=== PATIENT | female | born 1995 | race Caucasian/White ===

== ENCOUNTER 2018-03-04 14:19 | Emergency (ER) | payer OTHER ==
[2018-03-04 14:42] VITALS: BP 123/78; PULSE 80; TEMP 98.5; BMI 26.9
--- NOTE | 2018-03-04 14:42 | PDOC ---
Rapid Medical Evaluation Time Seen by Provider: 03/04/18 14:30 Medical Evaluation: Allergies Allergy/AdvReac Type Severity Reaction Status Date / Time No Known Allergies Allergy Verified 03/04/18 14:36 03/04/18 14:37 I have performed a brief in-person evaluation of this patient. The patient presents with a chief complaint of: neck pain x 6 weeks denies sore throat or pain swallowing. Seen at "clinic" today and referred to hospital for xray. Pertinent physical exam findings: NAD even and unlabored breathing no rash noted on skin neck with no swelling I have ordered the following: none The patient will proceed to the ED for further evaluation.
[2018-03-04] MEDS ORDERED: IBUPROFEN 600 MG TABLET (FP) PO ONE ×2 (15:36→15:38)
--- NOTE | 2018-03-04 15:37 | PDOC ---
History of Present Illness - General Chief Complaint: Head/Neck problem Stated Complaint: NECK PAIN Time Seen by Provider: 03/04/18 14:30 History Source: Patient Exam Limitations: No Limitations - History of Present Illness Initial Comments: 03/04/18 16:38 Patient is a 23-year-old female past medical history of kidney stones, who presents emergency department today complaining of right-sided neck pain. Patient states that she feels like it's been swollen. Denies fevers, chills, night sweats, lethargy, nausea vomiting diarrhea, sore throat. Past History - Travel Traveled outside of the country in the last 30 days: No Close contact w/someone who was outside of country & ill: No - Past Medical History Allergies/Adverse Reactions: Allergies Allergy/AdvReac Type Severity Reaction Status Date / Time No Known Allergies Allergy Verified 03/04/18 14:36 Home Medications: Ambulatory Orders Ibuprofen 600 mg PO TID #21 tablet 03/04/18 COPD: No Kidney Stones: Yes - Suicide/Smoking/Psychosocial Hx Smoking History: Current every day smoker Have you smoked in the past 12 months: Yes Number of Cigarettes Smoked Daily: 10 Information on smoking cessation initiated: No Review of Systems - Review of Systems Able to Perform ROS?: Yes Comments:: 03/04/18 16:19 CONSTITUTIONAL: Absent: fever, chills, diaphoresis, generalized weakness, malaise, loss of appetite HEENT: Present: R neck swelling Absent: rhinorrhea, nasal congestion, throat pain, throat swelling, difficulty swallowing, mouth swelling, ear pain, eye pain, visual Changes CARDIOVASCULAR: Absent: chest pain, loss of consciousness, palpitations, irregular heart rate, peripheral edema RESPIRATORY: Absent: cough, shortness of breath, dyspnea with exertion, orthopnea, wheezing, stridor, hemoptysis MUSCULOSKELETAL: Absent: myalgia, arthralgia, joint swelling SKIN: Absent: rash, itching, pallor NEUROLOGIC: Absent: headache, focal weakness or paresthesias, dizziness, unsteady gait, seizure, mental status changes, bladder or bowel incontinence Is the patient limited Serbian proficient: No *Physical Exam - Vital Signs Last Vital Signs Temp Pulse Resp BP Pulse Ox 98.5 F 80 19 123/78 100 03/04/18 14:36 03/04/18 14:36 03/04/18 14:36 03/04/18 14:36 03/04/18 14:36 - Physical Exam Comments: 03/04/18 16:19 GENERAL: Well developed, well nourished. Awake and alert. No acute distress. HEENT: Normocephalic, atraumatic. PERRLA, EOMI. No conjunctival pallor. Sclera are non- icteric. Moist mucous membranes. Oropharynx is clear. NECK: Supple. Full ROM. No JVD. Carotid pulses 2+ and symmetric, without bruits. No thyromegaly. (+) R sided LAD CARDIOVASCULAR: Regular rate and rhythm. No murmurs, rubs, or gallops. Distal pulses are 2+ and symmetric. PULMONARY: No evidence of respiratory distress. Lungs clear to auscultation bilaterally. No wheezing, rales or rhonchi. ABDOMINAL: Soft. Non-tender. Non-distended. No rebound or guarding. No organomegaly. Normoactive bowel sounds. MUSCULOSKELETAL Normal range of motion at all joints. No bony deformities or tenderness. No CVA tenderness. EXTREMITIES: No cyanosis. No clubbing. No edema. No calf tenderness. SKIN: Warm and dry. Normal capillary refill. No rashes. No jaundice. NEUROLOGICAL: Alert, awake, appropriate. Cranial nerves 2-12 intact. No deficits to light touch and temperature in face, upper extremities and lower extremities. No motor deficits in the in face, upper extremities and lower extremities. Normoreflexic in the upper and lower extremities. Normal speech. Toes are down- going bilaterally. Gait is normal without ataxia. PSYCHIATRIC: Cooperative. Good eye contact. Appropriate mood and affect. ED Treatment Course - LABORATORY CBC & Chemistry Diagram: 03/04/18 15:30 Medical Decision Making - Medical Decision Making 03/04/18 16:41 Patient is a 23-year-old female who is emergency department today with right neck swelling. On exam patient with LAD. No other exam findings. CBC is within normal limits at this time. Most likely LAD either from a viral illness or smoking. Instructed patient to follow up with primary care. Referral provided. Patient receives all discharge instructions and all questions were answered. *DC/Admit/Observation/Transfer Diagnosis at time of Disposition: LAD (lymphadenopathy) - Discharge Dispostion Disposition: HOME Condition at time of disposition: Stable Decision to Admit order: No - Prescriptions Prescriptions: Ibuprofen 600 mg PO TID #21 tablet - Referrals Referrals: ON STAFF,NOT [Primary Care Provider] - - Patient Instructions Printed Discharge Instructions: DI for Lymphadenopathy Additional Instructions: Your blood work is normal today. You have a swollen glands. Please take Motrin 600 mg every 8 hours for one week to help with the swelling. He may also use warm compresses to help with the swelling. Please try and quit smoking. Follow-up with the internal medicine doctor provided for you. Return to the emergency department if you have difficulty breathing, shortness of breath fevers, chills, or if you have any changes in your symptoms. [facility] Address: [address] [place] [address] - Post Discharge Activity
[2018-03-04 16:02] LABS: BASO % 0.8 % (0-2.0); EOS % 3.3 % (0-4.5); HEMATOCRIT 40.8 % (32.4-45.2); HEMOGLOBIN 13.8 GM/dL (10.7-15.3); LYMPH % 27.9 % (8-40); MCH 30.6 pg (25.7-33.7); MCHC 33.8 g/dl (32.0-36.0); MEAN CELL VOLUME 90.6 fl (80-96); MEAN PLT VOLUME 9.6 fl (7.5-11.1); MONO % 9.2 % (3.8-10.2); NEUT % 58.8 % (42.8-82.8); PLATELET COUNT 266 K/MM3 (134-434); RBC 4.51 M/mm3 (3.60-5.2); RDW 13.1 % (11.6-15.6); WHITE BLOOD COUNT 9.1 K/mm3 (4.0-10.0)
== END 2018-03-04 16:27 | disposition home or self-care (01) ==
LOC: JERFT 14:19
DX: R59.0 Localized enlarged lymph nodes (principal); F17.210 Nicotine dependence, cigarettes, uncomplicated; Z87.442 Personal history of urinary calculi
CPT/HCPCS: 36415; 85025; 99281-25

== ENCOUNTER 2019-09-02 18:32 | Emergency (ER) | payer OTHER ==
[2019-09-02 18:40] VITALS: BP 131/65; PULSE 78; TEMP 98
--- NOTE | 2019-09-02 19:10 | PDOC ---
History of Present Illness <Elisa Combs - Last Filed: 09/02/19 21:01> - History of Present Illness Initial Comments: 09/02/19 20:03 24 y/o F 10wks no significant medical hx presenting to the ED with 1 day of vaginal bleeding s/p sexual intercourse. She noticed bleeding while using the bathroom. Has had a about a couple of teaspoons worth of bleeding since then. Did not need to use a pad. Bleeding has reduced to mild pinking spotting on underwear. She endorses intermittent lower abdominal cramping pain and one episode of non-bloody emesis since yesterday. She denies fevers, chills, purulent vaginal discharge,bloody stools. Last OB visit was this earlier this week. reports was non-eventful. <Belle Palencia - Last Filed: 09/02/19 21:05> - General Chief Complaint: Vaginal Bleeding Stated Complaint: 10 WKS /BLEEDING Time Seen by Provider: 09/02/19 19:09 Past History <Elisa Combs - Last Filed: 09/02/19 21:01> - Past Medical History COPD: No Kidney Stones: Yes - Psycho Social/Smoking Cessation Hx Smoking History: Never smoked Have you smoked in the past 12 months: Yes Number of Cigarettes Smoked Daily: 10 <Belle Palencia - Last Filed: 09/02/19 21:05> - Past Medical History Allergies/Adverse Reactions: Allergies Allergy/AdvReac Type Severity Reaction Status Date / Time No Known Allergies Allergy Verified 09/02/19 18:37 Home Medications: Ambulatory Orders NK [No Known Home Medication] 09/02/19 *Physical Exam - Vital Signs Last Vital Signs Temp Pulse Resp BP Pulse Ox 98 F 78 18 131/65 99 09/02/19 18:34 09/02/19 18:34 09/02/19 18:34 09/02/19 18:34 09/02/19 18:34 <Elisa Combs - Last Filed: 09/02/19 21:01> - Vital Signs Last Vital Signs Temp Pulse Resp BP Pulse Ox 98 F 78 18 131/65 99 09/02/19 18:34 09/02/19 18:34 09/02/19 18:34 09/02/19 18:34 09/02/19 18:34 - Physical Exam Comments: 09/02/19 20:09 PE: GENERAL: Awake, alert, and fully oriented, in no acute distress HEAD: No signs of trauma, normocephalic, atraumatic EYES: EOMI, sclera anicteric, conjunctiva clear ENT: Auricles normal inspection, hearing grossly normal, nares patent, oropharynx clear without exudates. Moist mucosa NECK: Normal ROM, supple, or masses LUNGS: No distress, speaks full sentences, clear to auscultation bilaterally HEART: Regular rate and rhythm, normal S1 and S2, no murmurs, rubs or gallops, peripheral pulses normal and equal bilaterally. ABDOMEN: Soft, nontender, normoactive bowel sounds. No guarding, no rebound. No masses PELVIC: no cervical motion tenderness, no adnexal tenderness, trace blood in vaginal vault. cervical os closed clear discharge from os. EXTREMITIES : Normal inspection, Normal range of motion, no edema. No clubbing or cyanosis NEUROLOGICAL: Cranial nerves II through XII grossly intact. Normal speech, normal gait, no focal sensorimotor deficits SKIN: Warm, Dry, normal turgor, no rashes or lesions noted <Belle Palencia - Last Filed: 09/02/19 21:05> Procedures - Bedside Ultrasound Bedside Ultrasound: guest service representative Remarks: 09/02/19 21:01 Bedside pelvic US performed for female with VB and /or abdominal pain. views obtained: transverse and sagittal views of suprapubic region, findings include live IUP visualized dated at, FHR 168-170 bpm. no pelvic FF. Impression : live IUP. <Elisa Combs - Last Filed: 09/02/19 21:01> ED Treatment Course - LABORATORY CBC & Chemistry Diagram: 09/02/19 19:44 09/02/19 19:44 - ADDITIONAL ORDERS Additional order review: Laboratory Results 09/02/19 09/02/19 09/02/19 20:00 19:44 19:44 Sodium 134 L Potassium 4.1 Chloride 103 Carbon Dioxide 27 Anion Gap 5 L BUN 11.5 Creatinine 0.5 L Est GFR (CKD-EPI)AfAm 157.00 Est GFR (CKD-EPI)NonAf 135.46 Random Glucose 77 Calcium 9.5 Total Bilirubin 0.4 AST 13 L ALT 19 Alkaline Phosphatase 50 Total Protein 7.0 Albumin 3.9 Beta HCG, Quant Urine Color Yellow Urine Appearance Cloudy Urine pH 6.5 Ur Specific [place] 1.022 Urine Protein Negative Urine Glucose (UA) Negative Urine Ketones Negative Urine Blood Trace Urine Nitrite Negative Urine Bilirubin Negative Urine Urobilinogen 0.2 Ur Leukocyte Esterase Negative Urine WBC (Auto) 2 Urine RBC (Auto) 1 Urine Casts (Auto) 4 U Epithel Cells (Auto) 2.9 Urine Bacteria (Auto) 127.3 Blood Type O POSITIVE Antibody Screen Negative 09/02/19 19:44 Sodium Potassium Chloride Carbon Dioxide Anion Gap BUN Creatinine Est GFR (CKD-EPI)AfAm Est GFR (CKD-EPI)NonAf Random Glucose Calcium Total Bilirubin AST ALT Alkaline Phosphatase Total Protein Albumin Beta HCG, Quant 88680.1 Urine Color Urine Appearance Urine pH Ur Specific [place] Urine Protein Urine Glucose (UA) Urine Ketones Urine Blood Urine Nitrite Urine Bilirubin Urine Urobilinogen Ur Leukocyte Esterase Urine WBC (Auto) Urine RBC (Auto) Urine Casts (Auto) U Epithel Cells (Auto) Urine Bacteria (Auto) Blood Type Antibody Screen 09/02/19 19:44 RBC 4.22 MCV 89.7 MCHC 34.3 RDW 12.8 MPV 8.9 Neutrophils % 62.4 Lymphocytes % 25.0 Monocytes % 8.0 Eosinophils % 3.8 Basophils % 0.8 <Elisa Combs - Last Filed: 09/02/19 21:01> - LABORATORY CBC & Chemistry Diagram: 09/02/19 19:44 09/02/19 19:44 <Belle Palencia - Last Filed: 09/02/19 21:05> Medical Decision Making - Medical Decision Making 09/02/19 20:20 24 y/o F 10wks no significant medical hx presenting to the ED with 1 day of vaginal bleeding s/p sexual intercourse. Reilly cbc, cmp ua, uc transabdominal u/s 09/02/19 20:59 Transabdominal u/s <Belle Palencia - Last Filed: 09/02/19 21:05> Discharge <Elisa Combs - Last Filed: 09/02/19 21:01> - Discharge Information Problems reviewed: Yes - Admission No <Belle Palencia - Last Filed: 09/02/19 21:05> - Discharge Information Clinical Impression/Diagnosis: Vaginal bleeding during Condition: Stable Disposition: HOME - Patient Discharge Instructions Patient Printed Discharge Instructions: DI for Vaginal Bleeding During Additional Instructions: You were seen in the ER for vaginal bleeding Your care is not complete until you see your electric meter tester shop Refrain from sexual intercourse untill you see your COMPOSING MACHINE OPERATOR RETURN TO THE ER if You start bleeding again. Worsening abdominal pain/cramps Foul smelling discharge from your vagina Burning when your pee or blood in your urine.
[2019-09-02 19:57] LABS: BASO % 0.8 % (0-2.0); EOS % 3.8 % (0-4.5); HEMATOCRIT 37.8 % (32.4-45.2); MCH 30.7 pg (25.7-33.7); MCHC 34.3 g/dl (32.0-36.0); MEAN CELL VOLUME 89.7 fl (80-96); MEAN PLT VOLUME 8.9 fl (7.5-11.1); NEUT % 62.4 % (42.8-82.8); PLATELET COUNT 259 K/MM3 (134-434); RBC 4.22 M/mm3 (3.60-5.2); RDW 12.8 % (11.6-15.6); WHITE BLOOD COUNT 10.2 K/mm3 (4.0-10.0)
--- NOTE | 2019-09-02 20:15 | PDOC ---
Documentation entered by Avery Jimenez SCRIBE, acting as scribe for Elisa Combs MD. Elisa Combs MD: This documentation has been prepared by the Barbara fernandez Nirvannie, SCRIBE, under my direction and personally reviewed by me in its entirety. I confirm that the documentation accurately reflects all work, treatment, procedures, and medical decision making performed by me. Attending Attestation - Resident Resident Name: Belle Palencia - ED Attending Attestation I have performed the following: I have examined & evaluated the patient, The case was reviewed & discussed with the resident, I agree w/resident's findings & plan - HPI HPI: 09/02/19 20:13 24 YOF VB x 1 day beginning last night after intercourse couple of teaspoons, much decreased, spotting mostly, now since resolved. today with lower abdominal cramping, similar to menstrual cramps no f/c, purulence, urinary sx, diarrhea, n/v, flank pain, rash. last OB visit 5 days ago - unremarkable. 09/02/19 21:02 - Physicial Exam PE: 09/02/19 19:32 NAD, well appearing, EOMI, PERRL, MMM, nl conjunctiva, anicteric; neck supple. lungs clear, RRR, abdomen soft nontender. Back nontender. SMITH x4, no focal neuro deficits. No peripheral edema. normal color for ethnicity, WWP. pelvic exam done by resident - see documentation. 09/02/19 20:14 - Medical Decision Making 09/02/19 20:14 Vital Signs Temp Pulse Resp BP Pulse Ox 98 F 78 18 131/65 99 09/02/19 18:34 09/02/19 18:34 09/02/19 18:34 09/02/19 18:34 09/02/19 18:34 DDx female VB: ectopic , miscarriage, demise, subchorionic hematoma, retained POC, normal first trimester bleeding, UTI in in . Fibroid uterus, vaginitis, infection, electrolyte/metabolic derangements, anemia. Rh positive, no rhogam indicated VS wnl, normotensive, no tachy or hypoxia/respiratory distress. abdomen benign on reeval and no peritoneal findings, no VB here, controlled Beta hcg >60,000, appropriate. remainder of labs and lytes wnl. UA unremarkable for infection/sig bacteruria, f/u urine cultures, defer treating at this time without sx or prelim findings on UA. Bedside pelvic US performed for female with VB and /or abdominal pain. views obtained: transverse and sagittal views of suprapubic region, findings include live IUP visualized dated at, FHR 168-170 bpm. no pelvic FF. Impression : live IUP. Dispo: OB followup, bleeding precautions; return to ED if persistent and heavy vaginal bleeding, persistent pelvic pain not relieved by your prescribed medications, dizziness, shortness of breath, new and persistent fevers, other foul smelling discolored vaginal discharge, or for any other concerns. advised pelvic rest, avoid sex intercourse given risk of trauma and bleeding etiology 09/02/19 21:02 09/02/19 21:03 09/02/19 21:03 09/02/19 21:04
[2019-09-02 20:31] LABS: ALBUMIN 3.9 g/dl (3.4-5.0); BILIRUBIN,TOTAL 0.4 mg/dL (0.2-1); BLOOD UREA NITROGEN 11.5 mg/dL (7-18); CALCIUM 9.5 mg/dL (8.5-10.1); CREATININE 0.5 mg/dL (0.55-1.3); POTASSIUM 4.1 mmol/L (3.5-5.1)
[2019-09-02 20:37] LABS: EPI CELLS 2.9 /HPF (0-5/HPF); HYALINE CASTS 4 /lpf (0-8); PH,URINE 6.5 (5.0-8.0); URINE APPEARANCE CLOUDY; URINE BACTERIA 127.3 /hpf (NEGATIVE); URINE BILIRUBIN NEGATIVE (NEGATIVE); URINE COLOR YELLOW; URINE GLUCOSE (UA) NEGATIVE (NEGATIVE); URINE KETONE NEGATIVE (NEGATIVE); URINE LEUK ESTERASE NEGATIVE (NEGATIVE); URINE NITRITE NEGATIVE (NEGATIVE); URINE PROTEIN NEGATIVE (NEGATIVE); URINE RBC 1 /hpf (0-4); URINE UROBILINOGEN 0.2 mg/dL (0.2-1.0); URINE WBC 2 /hpf (0-5)
== END 2019-09-02 21:11 | disposition home or self-care (01) ==
LOC: JER 18:32
DX: O26.891 Other specified pregnancy related conditions, first trimester (principal); O20.8 Other hemorrhage in early pregnancy; Z3A.10 10 weeks gestation of pregnancy
CPT/HCPCS: 36415; 76815; 80053; 81003; 84702; 85025; 86850; 86900; 86901; 87086; 99282-25

== ENCOUNTER 2023-06-27 23:11 | Emergency (ER) | payer OTHER ==
[2023-06-27 23:33] VITALS: BP 132/88; PULSE 69; RESP 18; TEMP 98; BMI 23.9
[2023-06-28] MEDS ORDERED: ONDANSETRON 4 MG/2 ML VIAL IVPUSH ONE
[2023-06-28] MEDS ORDERED: MAG HYDROX/AL HYDROX/SIMETH 30 ML UNIT-DOSE CUP PO ONE
[2023-06-28] MEDS ORDERED: SODIUM CHLORIDE 0.9% 500 ML INFUS.BAG IV ONE
[2023-06-28] MEDS ORDERED: ACETAMINOPHEN 1000 MG/100 ML BAG IVPB ONE
[2023-06-28] MEDS ORDERED: MAG HYDROX/AL HYDROX/SIMETH 30 ML UNIT-DOSE CUP ONE (00:40)
[2023-06-28] MEDS ORDERED: FAMOTIDINE 20 MG/50 ML IVPB 20 MG/50 ML MG IVPB ONE ×2 (00:40)
[2023-06-28] MEDS ORDERED: ONDANSETRON 4 MG/2 ML VIAL ONE (00:40)
[2023-06-28] MEDS ORDERED: ACETAMINOPHEN INJECTION 100 ML IVPB ONE (00:43)
[2023-06-28 01:03] LABS: EOS % 4.1 % (0-4.5); HEMOGLOBIN 12.9 GM/dL (10.7-15.3); MCH 30.9 pg (25.7-33.7); MCHC 35.7 g/dl (32.0-36.0); MEAN CELL VOLUME 86.4 fl (80-96); MEAN PLT VOLUME 8.9 fl (7.5-11.1); MONO % 11.2 % (3.8-10.2); NEUT % 46.7 % (42.8-82.8); PLATELET COUNT 251 10^3/uL (134-434); RBC 4.17 M/mm3 (3.60-5.2); RDW 12.7 % (11.6-15.6); WHITE BLOOD COUNT 6.8 K/mm3 (4.0-10.0)
[2023-06-28 01:24] LABS: POTASSIUM 3.9 mmol/L (3.5-5.1)
[2023-06-28 01:26] LABS: CALCIUM 8.4 mg/dL (8.5-10.1)
[2023-06-28 01:27] LABS: ALBUMIN 3.9 g/dl (3.4-5.0); BLOOD UREA NITROGEN 13.7 mg/dL (7-18)
[2023-06-28 01:30] LABS: CREATININE 0.7 mg/dL (0.55-1.3)
[2023-06-28 01:31] LABS: BILIRUBIN,TOTAL 0.4 mg/dL (0.2-1); TOT PROT 6.9 g/dl (6.4-8.2)
[2023-06-28] MEDS ORDERED: KETOROLAC TROMETHAMINE 30 MG/1 ML VIAL IVPUSH ONE (01:55)
[2023-06-28 02:04] LABS: EPI CELLS >36 /uL (0-25.1); HYALINE CASTS 1 /uL (0-3.1); PH,URINE 6.5 (5.0-8.0); URINE APPEARANCE CLEAR; URINE BACTERIA 749 /uL (0-1359); URINE BILIRUBIN NEGATIVE (NEGATIVE); URINE COLOR YELLOW; URINE GLUCOSE (UA) NEGATIVE (NEGATIVE); URINE KETONE NEGATIVE (NEGATIVE); URINE LEUK ESTERASE TRACE (NEGATIVE); URINE NITRITE NEGATIVE (NEGATIVE); URINE PROTEIN NEGATIVE (NEGATIVE); URINE RBC 9 /uL (0-23.9); URINE UROBILINOGEN 0.2 mg/dL (0.2-1.0); URINE WBC 46 /uL (0-25.8)
[2023-06-28] MEDS ORDERED: KETOROLAC TROMETHAMINE 30 MG/1 ML VIAL ONE (02:05)
[2023-06-28] MEDS ORDERED: NITROFURANTOIN MACROCRYSTAL 50 MG CAPSULE (FP) PO ONE (02:15)
[2023-06-28] MEDS ORDERED: NITROFURANTOIN MACROCRYSTAL 50 MG CAPSULE (FP) ONE (02:26)
== END 2023-06-28 02:50 | disposition home or self-care (01) ==
LOC: JER 23:11
PROC: 3E033GC Introduction of Other Therapeutic Substance into Peripheral Vein, Percutaneous Approach (ICD-10-PCS; principal; 2023-06-28)
PROC: 3E033NZ Introduction of Analgesics, Hypnotics, Sedatives into Peripheral Vein, Percutaneous Approach (ICD-10-PCS; 2023-06-28)
PROC: 3E0333Z Introduction of Anti-inflammatory into Peripheral Vein, Percutaneous Approach (ICD-10-PCS; 2023-06-28)
PROC: 3E033GC Introduction of Other Therapeutic Substance into Peripheral Vein, Percutaneous Approach (ICD-10-PCS; 2023-06-28)
DX: R10.13 Epigastric pain (principal); N39.0 Urinary tract infection, site not specified; R11.10 Vomiting, unspecified; R39.15 Urgency of urination; E73.9 Lactose intolerance, unspecified
CPT/HCPCS: 36415; 80053; 81003; 83690; 84703; 85025; 87086; 99284-25

== ENCOUNTER 2023-07-25 00:30 | Emergency (ER) | payer OTHER ==
[2023-07-25 00:38] VITALS: BMI 21.7
[2023-07-25] MEDS ORDERED: LIDOCAINE 5% TOPICAL PATCH TP ONE (01:01)
[2023-07-25 01:17] LABS: URINE APPEARANCE Cloudy; URINE BILIRUBIN Negative (NEGATIVE); URINE COLOR Yellow; URINE GLUCOSE (UA) Negative (NEGATIVE); URINE KETONE Negative (NEGATIVE); URINE LEUK ESTERASE Negative (NEGATIVE); URINE NITRITE Negative (NEGATIVE); URINE PROTEIN Negative (NEGATIVE); URINE UROBILINOGEN 0.2 mg/dL (0.2-1.0)
[2023-07-25 01:26] LABS: EPI CELLS 11.2 /uL (0-25.1); HCG,QUALITATIVE URINE NEGATIVE; HYALINE CASTS 0.58 /uL (0-3.1); URINE BACTERIA 145.5 /uL (0-1359); URINE RBC 18.5 /uL (0-23.9); URINE WBC 12.1 /uL (0-25.8)
[2023-07-25 01:27] LABS: HEMATOCRIT 37.4 % (32.4-45.2); HEMOGLOBIN 13.3 GM/dL (10.7-15.3); LYMPH % 34.3 % (8-40); MCH 30.4 pg (25.7-33.7); MCHC 35.6 g/dl (32.0-36.0); MEAN CELL VOLUME 85.2 fl (80-96); MEAN PLT VOLUME 9.2 fl (7.5-11.1); MONO % 9.2 % (3.8-10.2); NEUT % 51.5 % (42.8-82.8); PLATELET COUNT 283 10^3/uL (134-434); RBC 4.39 M/mm3 (3.60-5.2); RDW 12.8 % (11.6-15.6); WHITE BLOOD COUNT 9.2 K/mm3 (4.0-10.0)
[2023-07-25] MEDS ORDERED: LIDOCAINE 4% PATCH TP ONE (01:27)
[2023-07-25 01:51] LABS: POTASSIUM 4.2 mmol/L (3.5-5.1)
[2023-07-25 01:53] LABS: CALCIUM 9.3 mg/dL (8.5-10.1)
[2023-07-25 01:54] LABS: BLOOD UREA NITROGEN 13.9 mg/dL (7-18)
[2023-07-25] MEDS ORDERED: SODIUM CHLORIDE 0.9% 1000 ML INFUS.BAG IV ONE (01:55)
[2023-07-25] MEDS ORDERED: ONDANSETRON 4 MG/2 ML VIAL IVPUSH ONE (01:56)
[2023-07-25 01:57] LABS: CREATININE 0.6 mg/dL (0.55-1.3)
[2023-07-25] MEDS ORDERED: ONDANSETRON 4 MG/2 ML VIAL ONE (01:57)
[2023-07-25 01:59] LABS: BILIRUBIN,TOTAL 0.6 mg/dL (0.2-1); TOT PROT 7.1 g/dl (6.4-8.2)
[2023-07-25 06:35] VITALS: BP 99/66; PULSE 58; RESP 18; TEMP 97.8
[2023-07-25] MEDS ORDERED: KETOROLAC TROMETHAMINE 15 MG/ML VIAL IVPUSH ONE (07:33)
[2023-07-25] MEDS ORDERED: IBUPROFEN 600 MG TABLET (FP) PO ONE ×2 (08:33→08:36)
[2023-07-25] MEDS ORDERED: LIDOCAINE PATCH REMOVAL MC SCH (22:00)
== END 2023-07-25 08:51 | disposition home or self-care (01) ==
LOC: JER 00:30
PROC: 3E033GC Introduction of Other Therapeutic Substance into Peripheral Vein, Percutaneous Approach (ICD-10-PCS; principal; 2023-07-25)
DX: R10.31 Right lower quadrant pain (principal); M54.50 Low back pain, unspecified
CPT/HCPCS: 36415; 74176-TC; 76705-TC; 76775-TC; 80053; 81003; 83735; 84703; 85025; 87086; 93005; 93010; 99285-25